=== PATIENT | male | born 2000 | race African-American/Black ===

== ENCOUNTER 2022-11-14 21:10 | Emergency (ER) | payer OTHER, SELFPAY ==
[2022-11-14 21:13] VITALS: BP 155/110; PULSE 116; RESP 16; TEMP 36.7; O2SAT 99; BMI 32.4
--- NOTE | 2022-11-14 21:26 | ED.UPPEXIN1 ---
HPI - Extremity Injury (Upper) General Chief Complaint: Skin/Abscess/Foreign Body Stated Complaint: LACERATION, UPPER EXTREMITY Time Seen by Provider: 11/14/22 21:15 Source: patient Mode of arrival: walk-in Limitations: no limitations History of Present Illness HPI narrative: This 22-year-old male who is right-hand dominant presents for evaluation of a laceration to his left middle finger. He cut his middle finger while using hedge trimmers. He has alaceration to the lateral aspect of the distal end of the finger and through the lateral aspect of the distal end of the left middle fingernail. He has no numbness or tingling. His last tetanus shot was when he was 17 years old but he refuses one today. No additional injuries or complaints. Other Extremity Injury: Left: fingers (distal end of LMF) Other injuries: Reports none Hand dominance: right Context: Reports laceration Associated symptoms: Reports denies other symptoms Related Data Home Medications Medication Instructions Recorded Confirmed No Known Home Medications 11/14/22 11/14/22 Allergies Allergy/AdvReac Type Severity Reaction Status Date / Time No Known Drug Allergies Allergy Verified 11/14/22 21:15 Review of Systems ROS Status of ROS 10 or more systems reviewed and unremarkable except as noted in history and below Exam Narrative Exam Narrative: Nurses note and vital signs reviewed and patient is not hypoxic. Blood pressure is noted to be elevated at 155/110 and he is tachycardic with a pulse of 116 General: The patient appears well and in no apparent distress. Patient is resting comfortably on cart. Skin: Warm, dry, no pallor noted. There is no rash noted. Head: Normocephalic, atraumatic Eye: Normal conjunctiva, no drainage, EOMI. PERRL Cardiovascular: Regular Rate and Rhythm S1S2 at 110 bpm on exam Respiratory: Patient is in no distress, no accessory muscle use, lungs are clear to auscultation, no wheezing, rales or rhonchi Back: non-tender, no CVA tenderness bilaterally to percussion. GI: Normal bowel sounds, no tenderness to palpation, no masses appreciated. No rebound, guarding, or rigidity noted. Musculoskeletal: approx 1cm clean, angulated laceration at lateral aspect of distal end of left middle (long) finger which includes a triangular shaped laceration of the lateral aspect of the left distal fingernail which is mildly attached to the finger, mild active bleeding noted, N/V/M intact, pt is able to flex and extend at MCP, DIP and PIP joints Neurological: A&O x4, normal speech Psychiatric: Cooperative Constitutional Vital Signs, click to edit/add: Last Vital Signs Temp 98.0 F 11/14/22 21:13 Pulse 116 H 11/14/22 21:13 Resp 16 11/14/22 21:13 BP 155/110 H 11/14/22 21:13 Pulse Ox 99 11/14/22 21:13 O2 Del Method Room Air 11/14/22 21:13 Course Vital Signs Vital signs: Vital Signs Temperature 98.0 F 11/14/22 21:13 Pulse Rate 116 H 11/14/22 21:13 Respiratory Rate 16 11/14/22 21:13 Blood Pressure 155/110 H 11/14/22 21:13 Pulse Oximetry 99 11/14/22 21:13 Oxygen Delivery Method Room Air 11/14/22 21:13 Temperature 98.0 F 11/14/22 21:13 Pulse Rate 116 H 11/14/22 21:13 Respiratory Rate 16 11/14/22 21:13 Blood Pressure 155/110 H 11/14/22 21:13 Pulse Oximetry 99 11/14/22 21:13 Oxygen Delivery Method Room Air 11/14/22 21:13 Discharge Plan Discharge Chief Complaint: Skin/Abscess/Foreign Body Clinical Impression: Finger laceration Patient Disposition: Home, Self-Care Time of Disposition Decision: 22:11 Prescriptions / Home Meds: No Action No Known Home Medications Instructions: Care For Your Stitches (ED), Finger Laceration (ED) Additional Instructions: Sutures can be removed in 10-12 days. Keep hand clean and dry. Keep your fingernail clipped back as the new nail grows out. You can apply bacitracin twice daily. Return to the ED for fever, increasing finger pain, red streaks up your arm or any concerns. Stand Alone Forms: Portal Instructions Referrals: NANY COREA [Primary Care Provider] - 1 week Procedures ED Laceration Laceration Laceration 1: Size (cm): 1 Depth: simple, single layer Anesthetic used: lidocaine 1% Anesthesia technique: nerve block (Left middle finger digital block) Amount (ml): 5 Skin layer closed with: Vicryl Size (cm): 3-0 Number of sutures: 4 Technique: simple, interrupted and other Additional comments: Laceration repair, left middle finger; it digital block was performed with 1 percent lidocaine. Once anesthesia was obtained 3, 3-0 Ethilon sutures are placed in the distal end of the finger laceration. The broken part of the finger nail was gently removed and additional 1, 4-0 Ethilon suture was placed into the most proximal portion of the laceration were the fingernail had been removed. Patient tolerated procedure well. Xeroform and sterile stick dressing was placed over the laceration site and covered with a 3 inch Kerlix. Patient tolerated procedure well and was given the remainder of the Xeroform and nonstick dressing to use at home for daily dressing changes.
[2022-11-14 22:14] VITALS: BP 150/98
== END 2022-11-14 22:17 | disposition home or self-care (01) ==
PROVIDERS: Emergency Provider Emergency Medicine; PCP Internal Medicine
DX: S61.213A Laceration without foreign body of left middle finger without damage to nail, initial encounter (principal); W29.3XXA Contact with powered garden and outdoor hand tools and machinery, initial encounter
CPT/HCPCS: 12001; 99284